=== PATIENT | female | born 1995 | race African-American/Black ===

== ENCOUNTER 2020-03-18 05:50 | Inpatient (IN) ==
[2020-03-18] MEDS ORDERED: ONDANSETRON 4 MG/2 ML VIAL IV PRN (06:05)
[2020-03-18] MEDS ORDERED: MEPERIDINE 50 MG/1 ML VIAL IV PRN (06:05)
[2020-03-18] MEDS ORDERED: BUTORPHANOL 2 MG/ML VIAL IV PRN (06:05)
[2020-03-18] MEDS ORDERED: LACTATED RINGERS 500 ML IV PRN (06:05)
[2020-03-18] MEDS: LACTATED RINGERS 1,000 ML IV SCH ×4 (06:38→23:58)
[2020-03-18 06:49] LABS: Basophils % 0.2 % (0.0-0.8); Eosinophils % 0.5 % (0.00-10.9); Hematocrit 32.7 VOL% (35.7-47.0); Immature Granulocytes % 1.2 %; Immature Granulocytes Absolute 0.11 #; Mean Corpuscular HGB Conc 33.6 GM/DL (32-36); Mean Corpuscular Volume 85.6 FL (87-102); Mean Platelet Volume 11.6 FL (9.6-12.0); Monocytes % 7.1 % (1.7-12.7); Platelet Count 234 T/CUMM (130-400); Red Blood Count 3.82 MC/CUMM (3.8-5.5); Red Cell Distribution Width 17.1 % (9.3-17.3); White Blood Count 8.9 T/CUMM (4-12)
[2020-03-18 07:05] LABS: Alanine Aminotransferase 15 U/L (13-56); Albumin 2.8 G/DL (3.4-5.0); Alkaline Phosphatase 123 U/L (45-117); Aspartate Amino Transferase 13 U/L (0-37); Bilirubin,Total < 0.39 MG/DL (0.2-1.0); Blood Urea Nitrogen 7 MG/DL (7-18); Calcium 8.4 MG/DL (8.5-10.1); Estimated Glom Filtration Rate 195 ML/MIN; Glucose 79 MG/DL (74-106); Osmolality,Calculated 269.8 MOS/KG (273-304); Total Protein 6.7 G/DL (6.4-8.3)
[2020-03-18 07:16] LABS: Hypochromasia 1+; Platelet Estimate Adequate
[2020-03-18] MEDS ORDERED: hydrOXYzine HCL 25 MG/1 ML VIAL IM PRN (07:52)
[2020-03-18] MEDS ORDERED: ePHEDrine 50 MG/ML VIAL IV PRN (07:52)
[2020-03-18] MEDS ORDERED: PROMETHAZINE 25 MG/1 ML VIAL IM ONE (07:52)
[2020-03-18] MEDS ORDERED: NALOXONE 0.4 MG/ML VIAL IV PRN (07:52)
[2020-03-18] MEDS ORDERED: FAMOTIDINE 20 MG/2 ML VIAL IV ONE (07:52)
[2020-03-18] MEDS ORDERED: diphenhydrAMINE 50 MG/1 ML VIAL IV PRN (07:52)
[2020-03-18] MEDS ORDERED: CITRIC ACID/SODIUM CITRATE 30 ML UDCUP PO ONE (07:52)
[2020-03-18] MEDS ORDERED: OXYTOCIN/LR 20 UNIT/1,000 ML BAG IV SCH (08:00)
[2020-03-18] MEDS: fentaNYL 2 MCG/ROPIV 0.2% EPID 100 ML EPIDURAL SCH ×2 (10:06→18:09)
[2020-03-18 12:06] LABS: Bilirubin,Urine Negative (Negative); Blood, Urine Negative (Negative); Glucose,Urine (UA) Negative (Negative); Ketones,Urine Negative (Negative); Mucus,Urine Few /LPF (Occasional); Nitrite,Urine Negative (Negative); Protein,Urine Negative; RBC,Urine 2 /HPF (0-4); Squamous Epithelial Cell,Urine Occasional /HPF (0-10); Urine Appearance CLEAR (Clear); Urine Color Yellow (Yellow); Urine Specific Gravity 1.026 (1.001-1.035); WBC,Urine 1 /HPF (0-6)
[2020-03-18] MEDS: diphenhydrAMINE 50 MG/1 ML VIAL IV PRN (19:49)
[2020-03-19] MEDS: fentaNYL 2 MCG/ROPIV 0.2% EPID 100 ML EPIDURAL SCH (02:31)
[2020-03-19] MEDS ORDERED: AMPICILLIN INJ 2,000 MG in SODIUM CHLORIDE 0.9% 100 ML IV ONE (06:07)
[2020-03-19] MEDS ORDERED: ACETAMINOPHEN 325 MG TABLET PO PRN ×2 (06:07→10:37)
[2020-03-19] MEDS: LACTATED RINGERS 1,000 ML IV SCH ×3 (07:18→18:45)
[2020-03-19] MEDS ORDERED: CITRIC ACID/SODIUM CITRATE 30 ML UDCUP PO ONE (08:31)
[2020-03-19] MEDS ORDERED: FAMOTIDINE 20 MG/2 ML VIAL IV ONE (08:31)
[2020-03-19] MEDS ORDERED: ceFAZolin 2,000 MG in PREMIX 1 EACH IV ONE (08:31)
[2020-03-19] MEDS ORDERED: ACETAMINOPHEN 500 MG TABLET PO ONE (08:43)
[2020-03-19] MEDS ORDERED: OXYTOCIN/LR 30 UNIT/1,000 ML BAG IV ONE (08:47)
[2020-03-19] MEDS ORDERED: OXYTOCIN 10 UNIT/ML VIAL IM ONE (08:48)
[2020-03-19] MEDS ORDERED: ceFAZolin 3,000 MG in SYRINGE 1 EACH IV ONE ×2 (08:51→09:30)
[2020-03-19 08:56] LABS: Basophils % 0.1 % (0.0-0.8); Eosinophils % 0.1 % (0.00-10.9); Hematocrit 34.3 VOL% (35.7-47.0); Hemoglobin 11.6 GM/DL (12.0-16.0); Immature Granulocytes % 0.6 %; Lymphocytes # 1.1 10*3/uL (1.4-4.0); Lymphocytes % 6.8 % (21.3-54.2); Mean Corpuscular HGB Conc 33.8 GM/DL (32-36); Mean Corpuscular Volume 86.8 FL (87-102); Mean Platelet Volume 11.4 FL (9.6-12.0); Monocytes % 6.2 % (1.7-12.7); Neutrophils % 86.2 % (38.7-73.9); Platelet Count 230 T/CUMM (130-400); Red Blood Count 3.95 MC/CUMM (3.8-5.5); Red Cell Distribution Width 17.2 % (9.3-17.3); White Blood Count 15.7 T/CUMM (4-12)
[2020-03-19] MEDS ORDERED: TRANEXAMIC ACID 1,000 MG/10 ML VIAL ONE (09:04)
[2020-03-19] MEDS ORDERED: miSOPROStoL 200 MCG TABLET ONE (09:04)
[2020-03-19] MEDS ORDERED: METHYLERGONOVINE 0.2 MG/1 ML AMP ONE (09:05)
[2020-03-19] MEDS ORDERED: CARBOPROST TROMETHAMINE 250 MCG/ML AMP IM ONE ×2 (09:05→10:00)
[2020-03-19] MEDS ORDERED: SODIUM CHLORIDE 0.9% 0 ML IV ONE (09:07)
[2020-03-19 09:19] LABS: Hypochromasia 1+; Platelet Estimate Adequate
[2020-03-19] MEDS ORDERED: LIDOCAINE MPF 2% /EPI 20 ML VIAL ONE ×2 (09:27→09:29)
[2020-03-19] MEDS ORDERED: MORPHINE 10 MG/10 ML VIAL ONE (09:59)
[2020-03-19] MEDS ORDERED: AMPICILLIN INJ 1,000 MG in SODIUM CHLORIDE 0.9% 100 ML IV SCH (10:00)
[2020-03-19 10:15] LABS: Cord Venous Blood HCO3 22.6 MMOL/L; Cord Venous Blood PCO2 33.8 MMHG; Cord Venous Blood PO2 38.2
[2020-03-19] MEDS ORDERED: propofoL 200 MG/20 ML VIAL IV ONE (10:33)
[2020-03-19] MEDS ORDERED: ONDANSETRON 4 MG/2 ML VIAL ONE (10:33)
[2020-03-19] MEDS ORDERED: PHENYLEPHRINE 10 MG/1 ML VIAL IV ONE (10:33)
[2020-03-19] MEDS ORDERED: ONDANSETRON 4 MG/2 ML VIAL IV PRN (10:37)
[2020-03-19] MEDS ORDERED: MAGNESIUM HYDROXIDE SUSP 30 ML UDCUP PO PRN (10:37)
[2020-03-19] MEDS ORDERED: RHO(D) IMMUNE GLOBULIN 300 MCG SYRINGE IM ONE (10:37)
[2020-03-19] MEDS ORDERED: OXYTOCIN/LR 20 UNIT/1,000 ML BAG IV ONE (10:37)
[2020-03-19] MEDS ORDERED: SIMETHICONE CHEW 80 MG TABLET PO PRN (10:37)
[2020-03-19] MEDS: ceFAZolin 1,000 MG in SYRINGE 1 EACH IV SCH ×2 (11:38→18:10)
[2020-03-19] MEDS: diphenhydrAMINE 50 MG/1 ML VIAL IV PRN (13:11)
[2020-03-19] MEDS: hydrOXYzine HCL 25 MG/1 ML VIAL IM PRN ×2 (16:00→22:42)
[2020-03-19 17:43] LABS: Basophils % 0.2 % (0.0-0.8); Eosinophils % 0.1 % (0.00-10.9); Hematocrit 29.1 VOL% (35.7-47.0); Hemoglobin 9.8 GM/DL (12.0-16.0); Immature Granulocytes % 0.8 %; Immature Granulocytes Absolute 0.18 #; Lymphocytes # 1.6 10*3/uL (1.4-4.0); Mean Corpuscular HGB Conc 33.7 GM/DL (32-36); Mean Corpuscular Volume 86.4 FL (87-102); Mean Platelet Volume 11.4 FL (9.6-12.0); Neutrophils % 86.9 % (38.7-73.9); Platelet Count 222 T/CUMM (130-400); Red Blood Count 3.37 MC/CUMM (3.8-5.5); Red Cell Distribution Width 17.2 % (9.3-17.3); White Blood Count 22.7 T/CUMM (4-12)
[2020-03-19 18:11] LABS: Band Neutrophils 2 % (0-10); Eosinophils 1 % (0-10); Hypochromasia 1+; Lymphocytes 10 % (20-55); Microcytosis Slight; Platelet Estimate Adequate; Segmented Neutrophils 83 % (50-85); Total Cells Counted 100
[2020-03-19] MEDS: DOCUSATE SODIUM 100 MG CAPSULE PO SCH (22:33)
[2020-03-20] MEDS ORDERED: ceFAZolin 1,000 MG in SYRINGE 1 EACH IV SCH (00:30)
[2020-03-20] MEDS: ceFAZolin 1,000 MG in SYRINGE 1 EACH IV SCH (02:10)
[2020-03-20] MEDS ORDERED: diphenhydrAMINE 50 MG/1 ML VIAL IV PRN (03:59)
[2020-03-20 06:08] LABS: Basophils % 0.1 % (0.0-0.8); Eosinophils % 0.2 % (0.00-10.9); Hematocrit 28.5 VOL% (35.7-47.0); Hemoglobin 9.6 GM/DL (12.0-16.0); Immature Granulocytes % 0.7 %; Immature Granulocytes Absolute 0.12 #; Lymphocytes # 1.4 10*3/uL (1.4-4.0); Lymphocytes % 8.7 % (21.3-54.2); Mean Corpuscular HGB Conc 33.7 GM/DL (32-36); Mean Corpuscular Volume 86.6 FL (87-102); Mean Platelet Volume 11.8 FL (9.6-12.0); Monocytes % 8.1 % (1.7-12.7); Neutrophils % 82.2 % (38.7-73.9); Platelet Count 193 T/CUMM (130-400); Red Blood Count 3.29 MC/CUMM (3.8-5.5); Red Cell Distribution Width 17.2 % (9.3-17.3); White Blood Count 16.5 T/CUMM (4-12)
[2020-03-20] MEDS: MULTIVITAMIN (PRENATAL) TABLET PO SCH (10:07)
[2020-03-20] MEDS: DOCUSATE SODIUM 100 MG CAPSULE PO SCH ×2 (10:08→21:12)
[2020-03-20] MEDS: IBUPROFEN 800 MG TABLET PO PRN ×2 (10:08→20:41)
[2020-03-20] MEDS ORDERED: BISACODYL 10 MG SUPP RECTAL PRN (20:42)
[2020-03-21] MEDS: IBUPROFEN 800 MG TABLET PO PRN (05:51)
[2020-03-21 07:31] VITALS: BP 108/55
[2020-03-21] MEDS: MULTIVITAMIN (PRENATAL) TABLET PO SCH (08:27)
[2020-03-21] MEDS: DOCUSATE SODIUM 100 MG CAPSULE PO SCH (08:27)
== END 2020-03-21 11:50 | disposition home or self-care (01) | DRG 540 ==
LOC: N.LDOUT 05:50 → N.LD 05:53 → N.OB 03-19 14:10
PROVIDERS: ADMIT Obstetrics & Gynecology; ATTEND Obstetrics & Gynecology
PROC: LDCSECT (ICD-10-PCS; 2020-03-19 08:55)